=== PATIENT | male | born 1990 | race African-American/Black ===

== ENCOUNTER → 2018-05-30 | Outpatient (CLI) | payer OTHER ==
--- NOTE | 2018-05-30 13:06 | RADIOLOGY REPORT (SQ) ---
EXAM DESCRIPTION: RIBS LEFT W/PA CHEST COMPLETED DATE/TIME: 05/30/2018 12:45 pm REASON FOR STUDY: LEFT-SIDED CHEST WALL PAIN R07.89 OTHER CHEST PAIN COMPARISON: None. TECHNIQUE: Frontal view of the chest and additional views of the left ribs acquired. NUMBER OF VIEWS: PA chest Left rib detail four views LIMITATIONS: None. FINDINGS: FRONTAL CXR: No pneumothorax. No pleural effusion. No atelectasis or infiltrates. Cardi ac silhouette size, leo unremarkable. RIBS: No displaced rib fractures. No lytic or blastic bony lesions. OTHER: No other significant finding. IMPRESSION: NO PNEUMOTHORAX. NO DISPLACED RIB FRACTURES. COMMENT: SITE OF TRAUMA/COMPLAINT MARKED/STAMP COMPLETED: Yes TECHNICAL DOCUMENTATION: JOB ID: [id number] [employer]- All Rights Reserved Reading location - IP/workstation name: [email or web address]
== END ==
LOC: OD 12:15
PROVIDERS: ATTEND Nurse Practitioner Acute Care
DX: R07.89 Other chest pain (principal)

== ENCOUNTER 2019-03-19 12:10 | Emergency (ER) | payer SELFPAY ==
[2019-03-19] MEDS ORDERED: METOCLOPRAMIDE HCL ORAL SOLN 10 MG/10 ML UDCUP PO ONE (12:29)
[2019-03-19] MEDS ORDERED: MAG HYDROX/AL HYDROX/SIMETH SUSP 30 ML UDCUP PO ONE (12:29)
[2019-03-19] MEDS ORDERED: LIDOCAINE 2% VISCOUS SOLN 20 ML UDCUP PO ONE (12:29)
--- NOTE | 2019-03-19 12:31 | ER Document Report ---
ED Medical Screen (RME) - General Chief Complaint: Chest Pain Stated Complaint: CHEST PAIN Time Seen by Provider: 03/19/19 12:23 Primary Care Provider: SYMONE WERNER NP [Primary Care Provider] - Follow up as needed Notes: Patient is a 28-year-old male who presents to the emergency department with a chief complaint of chest tightness. It started around 730 last night. Patient states that it is a constant pain. It did ease off just a little bit last night, but then continued this morning. Patient states that the pain came on about an hour after eating last night. Is an everyday smoker. Exam: S1, S2. Sinus rhythm on twelve-lead EKG. I have greeted and performed a rapid initial assessment of this patient. A comprehensive ED assessment and evaluation of the patient, analysis of test results and completion of medical decision making process will be conducted by an additional ED providers. TRAVEL OUTSIDE OF THE [place] IN LAST 30 DAYS: No - Related Data Allergies/Adverse Reactions: No Known Allergies Allergy (Verified 09/10/14 19:46) Past Medical History - Immunizations Immunizations up to date: Yes Hx Diphtheria, Pertussis, Tetanus Vaccination: Yes Doctor's Discharge - Discharge Referrals: SYMONE WERNER NP [Primary Care Provider] - Follow up as needed
[2019-03-19 12:52] LABS: ABSOLUTE BASOPHILS # (AUTO) 0.1 10^3/uL (0.0-0.2); ABSOLUTE EOSINOPHILS # (AUTO) 0.4 10^3/uL (0.0-0.6); ABSOLUTE LYMPHOCYTES (AUTO) 3.7 10^3/uL (0.5-4.7); ABSOLUTE NEUT (AUTO) 8.8 10^3/uL (1.7-8.2); BASOPHILS % (AUTO) 0.8 % (0-2); EOSINOPHILS % (AUTO) 2.9 % (0-6); HEMATOCRIT 46.7 % (37.9-51.0); HEMOGLOBIN 15.7 g/dL (13.5-17.0); LYMPHOCYTES % (AUTO) 26.2 % (13-45); MEAN CORPUSCULAR HEMOGLOBIN 31.2 pg (27.0-33.4); MEAN CORPUSCULAR HGB CONC 33.6 g/dL (32.0-36.0); MEAN CORPUSCULAR VOLUME 93 fl (80-97); MONOCYTES % (AUTO) 6.9 % (3-13); PLATELET COUNT 959 10^3/uL (150-450); RED BLOOD COUNT 5.02 10^6/uL (4.35-5.55); RED CELL DISTRIBUTION WIDTH 14.5 % (11.5-14.0); SEGMENTED NEUTROPHILS % (AUTO) 63.2 % (42-78); TOTAL CELLS COUNTED % (AUTO) 100 %
--- NOTE | 2019-03-19 12:58 | RADIOLOGY REPORT (SQ) ---
EXAM DESCRIPTION: CHEST SINGLE VIEW COMPLETED DATE/TIME: 03/19/2019 12:43 pm REASON FOR STUDY: chest pain COMPARISON: PA and lateral views of the chest from 09/12/2014. EXAM PARAMETERS: NUMBER OF VIEWS: One view. TECHNIQUE: Single frontal radiographic view of the chest acquired. RADIATION DOSE: NA LIMITATIONS: None. FINDINGS: LUNGS AND PLEURA: No consolidation, pleural effusion or pneumothorax. MEDIASTINUM AND HILAR STRUCTURES: No mediastinal or hilar contour abnormality. HEART AND VASCULAR STRUCTURES: The cardiomediastinal silhouette and pulmonary vasculature are within normal limits. BONES: No acute findings. HARDWARE: None in the chest. OTHER: No other finding. IMPRESSION: No acute cardiopulmonary process. TECHNICAL DOCUMENTATION: JOB ID: [id number] [employer]- All Rights Reserved Reading location - IP/workstation name: [email or web address]
--- NOTE | 2019-03-19 13:04 | ER Document Report ---
ED Cardiac - General Chief Complaint: Chest Pain Stated Complaint: CHEST PAIN Time Seen by Provider: 03/19/19 12:23 Primary Care Provider: SYMONE WERNER NP [NURSE PRACTITIONER] - Follow up as needed Information source: Patient TRAVEL OUTSIDE OF THE [place] IN LAST 30 DAYS: No - HPI Patient complains to provider of: Chest pain. denies: Chest tightness, Palpi tations, Shortness of breath, Other Was the onset of pain: Gradual When did pain begin: 1 week Chest pain location: Pleuritic. No: Substernal, Axillary, Back, Under breast, Other Quality of pain: Sharp. denies: None, Constant, Intermittent, Mild, Moderate, Severe, Achy, Burning, Constriction, Cramping, Crushing, Dull, Heaviness, Incisional, Indigestion, Numbness, Pressure, Radiating, Stabbing, Tearing, Throbbing, Tightness, Tingling, Other Chest pain radiation location: denies: Left jaw, Left arm, Left shoulder, Right jaw, Right arm, Right shoulder, Back, Neck, None Severity now: Mild Severity at worst: Mild Chest pain precipitating factors: Coughing Cardiac risk factors: Smoker Associated symptoms: denies: None, Abdominal pain, Anxiety, Back pain, Cool extremities, Diaphoresis, Dizziness, Edema, Fatigue, Fever/chills, Headache, Heartburn, Hypotension, Jaw pain, Lightheaded, Nausea/vomiting, Neck pain, Palpitations, Rash, Shortness of breath, Swelling/lump in chest, Syncope, Weakness, Other Exacerbated by: Torso movement Relieved by: Rest - Related Data Allergies/Adverse Reactions: No Known Allergies Allergy (Verified 09/10/14 19:46) Past Medical History - Social History Smoking Status: Current Every Day Smoker Frequency of alcohol use: None Drug Abuse: None Family History: Reviewed & Not Pertinent Patient has suicidal ideation: No Patient has homicidal ideation: No - Immunizations Immunizations up to date: Yes Hx Diphtheria, Pertussis, Tetanus Vaccination: Yes Review of Systems - Review of Systems Constitutional: denies: No symptoms reported, See HPI, Chills, Diaphoresis, Fever, Malaise, Weakness, Other, Weight gain, Weight loss, Recent illness EENT: denies: No symptoms reported, See HPI, Eye pain, Eye discharge, Blurred vision, Tearing, Double vision, Ear pain, Ear discharge, Nose pain, Nose congestion, Nose discharge, Sinus pressure, Sinus discharge, Throat pain, Diffic ulty swallowing, Throat swelling, Mouth pain, Mouth swelling, Dental problem, Vertigo, Other Cardiovascular: Chest pain. denies: No symptoms reported, See HPI, Palpitations, Heart racing, Orthopnea, Dyspnea, Syncope, Dizziness, Lightheaded, Edema, Other, Paroxysmal Nocturnal Dysp Respiratory: Cough, Hurts to breathe. denies: No symptoms reported, See HPI, Hemoptysis, Short of breath, Sputum, Stridor, Wheezing, Other Gastrointestinal: denies: No symptoms reported, See HPI, Abdomen distended, Abdominal pain, Diarrhea, Nausea, Vomiting, Constipation, Blood streaked bowels, Poor appetite, Poor fluid intake, Blood in vomit, Black stools, Rectal bleeding, Last bowel movement, Fecal incontinence, Other -: Yes All other systems reviewed and negative Physical Exam - Vital signs Vitals: Temp Pulse Resp BP Pulse Ox 97.9 F 65 18 125/77 95 03/19/19 12:30 03/19/19 12:30 03/19/19 12:30 03/19/19 12:30 03/19/19 12:30 Notes: PHYSICAL EXAMINATION: GENERAL: Well-appearing, well-nourished and in no acute distress. HEAD: Atraumatic, normocephalic. EYES: Pupils equal round and reactive to light, extraocular movements intact, sclera anicteric, conjunctiva are normal. ENT: nares patent, oropharynx clear without exudates. Moist mucous membranes. NECK: Normal range of motion, supple without lymphadenopathy LUNGS: Breath sounds clear to auscultation bilaterally and equal. No wheezes rales or rhonchi. Chest: Some pain to palpation in the left lower sternal border patient has this much increased when he moves his left arm or moves his trunk or takes a deep breath. It ceases when he held still HEART: Regular rate and rhythm without murmurs ABDOMEN: Soft, nontender, normoactive bowel sounds. No guarding, no rebound. No masses appreciated. EXTREMITIES: Normal range of motion, no pitting or edema. No cyanosis. NEUROLOGICAL: No focal neurological deficits. Moves all extremities spontaneously and on command. PSYCH: Normal mood, normal affect. SKIN: Warm, Dry, normal turgor, no rashes or lesions noted. Course - Vital Signs Vital signs: Temp Pulse Resp BP Pulse Ox 97.9 F 65 18 125/77 95 03/19/19 12:30 03/19/19 12:30 03/19/19 12:30 03/19/19 12:30 03/19/19 12:30 - Laboratory Result Diagrams: 03/19/19 12:35 03/19/19 12:35 Laboratory results interpreted by me: 03/19/19 03/19/19 12:35 12:35 WBC 14.0 H RDW 14.5 H Plt Count 959 H Absolute Neuts (auto) 8.8 H Calcium 10.5 H - Diagnostic Test Radiology reviewed: Image reviewed, Reports reviewed Discharge - Discharge Clinical Impression: Pleurisy Condition: Good Disposition: HOME, SELF-CARE Instructions: Chest Wall Pain ([facility]), Pleurisy ([facility]) Additional Instructions: Return if you get chest pain which is worse with exertion better with rest shortness of breath or condition worsens warm moist soaks to the chest wall for 20 minutes 3 times a day are suggested. Prescriptions: Hydrocodone Bit/Homatropine [Hycodan Syrup 5-1.5 mg/5 ml Ud Cup] 5 ml PO Q4HP PRN #120 ml PRN Reason: Albuterol Sulfate [Proair HFA Inhalation Aerosol 8.5 gm MDI] 2 puff IH Q4H PRN #1 mdi PRN Reason: Referrals: SYMONE WERNER, [employer] [NURSE PRACTITIONER] - Follow up as needed
[2019-03-19 13:18] LABS: ALBUMIN 4.6 g/dL (3.5-5.0); ALKALINE PHOSPHATASE 71 U/L (38-126); ANION GAP 9 (5-19); ASPARTATE AMINO TRANSFERASE 24 U/L (17-59); BILIRUBIN,DIRECT 0.2 mg/dL (0.0-0.4); BILIRUBIN,TOTAL 0.6 mg/dL (0.2-1.3); BLOOD UREA NITROGEN 11 mg/dL (7-20); CALCIUM 10.5 mg/dL (8.4-10.2); CARBON DIOXIDE 30 mmol/L (22-30); CHLORIDE 104 mmol/L (98-107); CREATINE KINASE 86 U/L (55-170); GLUCOSE 91 mg/dL (75-110); TOTAL PROTEIN 7.9 g/dL (6.3-8.2)
[2019-03-19 14:25] VITALS: BP 121/86
--- NOTE | 2019-03-19 20:22 | EKG REPORT ---
SEVERITY:- ABNORMAL ECG - SINUS RHYTHM PROBABLE LEFT ATRIAL ABNORMALITY PROBABLE LEFT VENTRICULAR HYPERTROPHY : Confirmed by: Wes Brewster MD 19-Mar-2019 20:21:39
== END 2019-03-19 14:20 | disposition home or self-care (01) ==
LOC: ER 12:10
DX: R09.1 Pleurisy (principal); F17.200 Nicotine dependence, unspecified, uncomplicated
CPT/HCPCS: 93005; 36415; 82550; 83690; 85025; 80053; 84484; 71045; 93010; J3490; 99285

== ENCOUNTER 2019-05-25 12:12 | Emergency (ER) | payer SELFPAY ==
[2019-05-25 12:28] VITALS: BP 127/83
--- NOTE | 2019-05-25 15:58 | EKG REPORT ---
SEVERITY:- ABNORMAL ECG - SINUS RHYTHM PROBABLE LEFT ATRIAL ABNORMALITY PROBABLE LEFT VENTRICULAR HYPERTROPHY : Confirmed by: Wes Brewster MD 25-May-2019 15:57:46
== END 2019-05-25 13:20 | disposition left against medical advice (07) ==
LOC: ER 12:12
DX: Z53.21 Procedure and treatment not carried out due to patient leaving prior to being seen by health care provider (principal)
CPT/HCPCS: 93005; 93010